=== PATIENT | female | born 1985 | race Hispanic/Latino ===

== ENCOUNTER 2018-08-19 11:21 | Outpatient (CLI) | payer OTHER ==
--- NOTE | 2018-08-19 12:25 | Ultrasound Report ---
Pelvic ultrasound: Menorrhagia. Endovaginal and transabdominal imaging is performed. There is a retroverted uterus measuring 4.6 x 7.7 x 8.9 cm. The myometrium is homogeneous. The endometrium is well-defined and homogeneous with a diameter of 5.6 mm. The left ovary has a maximum dimension of 3.7 cm and the right ovary has a maximum dimension of 4.6 cm. There are multiple follicles in both ovaries. Both ovaries contain normal flow by Doppler imaging. There is a small amount of free echolucent cul-de-sac fluid. Impression: No pathology identified.
== END 2018-08-19 11:22 | disposition home or self-care (01) ==
LOC: SPVWC 11:21
DX: R10.2 Pelvic and perineal pain (principal); N92.0 Excessive and frequent menstruation with regular cycle
CPT/HCPCS: 76830; 76856